=== PATIENT | male | born 1995 | race Caucasian/White ===

== ENCOUNTER 2017-01-26 14:10 | Observation (INO) | payer OTHER ==
[~2017-01-26] VITALS: Ht 185.4 cm; Wt 72.1 kg
--- NOTE | 2017-01-26 14:17 | NUR ---
21 YEAR OLD MALE STATES THAT HE WORKS [employer] AND THAT WHILE AT WORK HE BECAME VERY LIGHT HEADED AND DIZZY, STATES THAT HE FEELS WEAK, AND THAT HE HAS HAD WEIGHT LOSS OF ABOUT 40 LBS IN 2.5 MONTHS. HR 54 AT TRIAGE.
[2017-01-26 14:44] LABS: ABSOLUTE BASOPHIL COUNT 0 /CUMM (0.0-0.2); ABSOLUTE EOSINOPHIL COUNT 0.2 /CUMM (0.0-0.7); ABSOLUTE LYMPH COUNT 2.2 /CUMM (1.2-3.4); ABSOLUTE MONOCYTE COUNT 0.7 /CUMM (0.10-0.60); BASOPHIL % 0.5 % (0.0-2.0); EOSINOPHIL % 2.8 % (0-5); GRANULOCYTE % 61.6 % (42.2-75.2); HEMATOCRIT 38.6 % (42-52); MEAN CORPUSCULAR HGB 30.3 PG (27.0-31.0); MEAN CORPUSCULAR HGB CONC 34.1 G/DL (33.0-37.0); MEAN CORPUSCULAR VOLUME 88.8 FL (80.0-94.0); MEAN PLATELET VOLUME 8.1 FL (7.4-10.4); PLATELET COUNT 306 /CUMM (130-400); RBC DISTRIBUTION WIDTH 13.1 % (11.5-14.5); RED BLOOD CELL CT 4.35 /CUMM (4.70-6.10); WHITE BLOOD CELL COUNT 8.1 /CUMM (4.8-10.8)
--- NOTE | 2017-01-26 16:08 | NUR ---
PT TO ROOM 9, AWAITING PROVIDER EVAL
--- NOTE | 2017-01-26 16:09 | NUR ---
PT CHANGED INTO GOWN AND PLACED ON CARDIAC MONIOR
--- NOTE | 2017-01-26 16:20 | ED SYNCOPE COMPLAINT ---
See Addendum History of Present Illness General Chief Complaint: Syncope and Near-Syncope Stated Complaint: PT NEAR SYNCOPE Source: patient Exam Limitations: no limitations Vital Signs & Intake/Output Vital Signs & Intake/Output Vital Signs Date Time Temp Pulse Resp B/P B/P Pulse O2 O2 Flow FiO2 Mean Ox Delivery Rate 01/27 0814 96.2 51 20 120/58 98 Room Air 01/27 0622 97.9 39 16 127/67 96 Room Air 01/27 0341 98.1 42 16 125/64 97 Room Air 01/27 0001 98.1 50 16 129/69 97 Room Air 01/26 1414 98.5 54 16 135/80 97 Room Air ED Intake and Output 01/27 0000 01/26 1200 Intake Total Output Total Balance Patient 158 lb Weight Allergies Coded Allergies: NSAIDS (Non-Steroidal Anti-Inflamma (LEONOR MANSFIELD SAID DO NOT TAKE 01/26/17) Reconcile Medications No Known Home Medications Triage Note: 21 YEAR OLD MALE STATES THAT HE WORKS [employer] AND THAT WHILE AT WORK HE BECAME VERY LIGHT HEADED AND DIZZY, STATES THAT HE FEELS WEAK, AND THAT HE HAS HAD WEIGHT LOSS OF ABOUT 40 LBS IN 2.5 MONTHS. HR 54 AT TRIAGE. Triage Nurses Notes Reviewed? yes Timing: recent history Precipitating Factors: lightheadedness HPI: Patient is a 21-year-old male with an unremarkable past medical history of stents emergency room stating that the past 6 months she's been complaining of intermittent lightheadedness and dizziness sensation however today he was in his normal state of health while working outside in [place] he had acute onset of lightheaded sensation dizziness and diaphoresis AND PRESYNCOPE SYMPTOMS and Patient states that symptoms have improved prior to lunch patient ate lunch however symptoms then reoccurred.THEN patient DOES STATE that his coworkers told him that he did lose consciousness for less than 1 minute. Patient does state that he smokes tobacco and drinks alcohol on occasion denies any illicit drug use. Denies any fever chills headache cough shortness of breath chest pain nausea vomiting. (MARTINEZ SCHULER,CALDERON) Past History Travel History Traveled to [place] past 21 day No Medical History Any Pertinent Medical History? none Neurological: NONE EENT: NONE Cardiovascular: NONE Respiratory: NONE Gastrointestinal: NONE Hepatic: NONE Renal: NONE Musculoskeletal: NONE Psychiatric: NONE Endocrine: NONE Blood Disorders: NONE Cancer(s): NONE Surgical History Surgical History: non-contributory Psychosocial History What is your primary language Nepalese Tobacco Use: Current Daily Use Daily Tobacco Use Amount/Type: => 5 Cigarettes daily ETOH Use: denies use Illicit Drug Use: denies illicit drug use Family History Hx Contributory? No (CALDERON CARIAS) Review of Systems Review of Systems Constitutional: Reports: see HPI. EENTM: Reports: no symptoms. Respiratory: Reports: no symptoms. Cardiovascular: Reports: see HPI, syncope. GI: Reports: no symptoms. Genitourinary: Reports: no symptoms. Musculoskeletal: Reports: no symptoms. Skin: Reports: no symptoms. Neurological/Psychological: Reports: no symptoms. All Other Systems: Reviewed and Negative (CALDERON CARIAS) Physical Exam Physical Exam General Appearance: no apparent distress, alert, comfortable Cranial Nerves: normal hearing, normal speech, PERRL Comments: Well-developed well-nourished person in no acute distress HEENT: Normal EENT exam, extraocular motion intact, no nystagmus. Pupils equally round and reactive to light and accommodation. Nose is atraumatic. External auditory canal and Tympanic membranes clear. Pharynx normal. No swelling or edema. Neck: Supple, no lymphadenopathy, normal range of motion without pain or tenderness Back: Nontender, no CVA tenderness. Cardiovascular: Regular rate and rhythms no murmurs rubs or gallops, normal JVP Respiratory: Chest nontender. No respiratory distress.breath sounds clear to auscultation bilaterally Abdomen: Soft, nontender nondistended, no appreciable organomegaly. Normal bowel sounds. No ascites Extremity: No edema, no calf tenderness to palpation, normal and equal pulses. Neuro: Alert oriented x3, motor sensory normal, Skin: No appreciable rash on exposed skin, skin is warm and dry. Psych: Mood and affect is normal, memory and judgment is normal. Core Measures ACS in differential dx? Yes CVA/TIA Diagnosis: No Severe Sepsis Present: No Septic Shock Present: No (CALDERON CARIAS) Progress Differential Diagnosis: AMI, aortic dissection, aortic valve, drug induced syncope, hyperventilation, orthostatic syncope, other valvular disease, pacemaker malfunction, pericardial tamponade, pulmonary embolus, seizure, sick sinus syndrome, subarachnoid hem., TIA/CVA, vasodepressor syncope, ventricular tach/fib, HCM Plan of Care: Orders Procedure Date/time Status Regular Diet 01/27 B Active Add-on Test (ER Only) 01/27 1156 Active TROPONIN LEVEL 01/27 06 Complete LYME TITRE 01/27 06 Active LIPID PANEL 01/27 06 Complete CBC WITHOUT DIFFERENTIAL 01/27 06 Complete BASIC ELECTROLYTES PLUS BUN&CR 01/27 06 Complete EKG 01/27 06 Active ECHOCARDIOGRAM 01/27 0600 Active THYROID STIMULATING HORMONE 01/27 0525 Complete VITAMIN B12 01/27 0525 Complete Teach/Educate 01/27 0230 Active Pain Treatment and Response 01/27 023 Active Nutritional Intake, Monitor 01/27 023 Active Isolation 01/27 023 Active Patient Care Conference 01/27 0230 Active Activity/Ambulation 01/27 0230 Active EKG 01/27 0106 Active Lab Add-on Test 01/27 UNK Active Nursing Misc 01/27 UNK Active TROPONIN LEVEL 01/27 2236 Complete Pathway - chart 01/27 2232 Active Patient Data 01/27 2232 Active Code Status 01/27 2232 Active Misc Message 01/26 2153 Active ED Holding Orders 01/26 2153 Active Vital Signs 01/26 2153 Active Code Status 01/26 215 Complete Patient Data 01/[address] in observation 01/26 2009 Active Telemetry/Network Coordinator 01/26 192 Active MISTAKE 01/26 1634 Active TROPONIN LEVEL 01/26 1430 Complete URINE DRUG SCREEN FOR ER ONLY 01/26 1426 Complete COMPREHENSIVE METABOLIC PANEL 01/26 1418 Complete CBC WITHOUT DIFFERENTIAL 01/26 1418 Complete EKG 01/26 1418 Active Pathway - chart 01/26 UNK Active House Staff 01/26 UNK Active ACS Core Measures 01/26 UNK Active VTE Mechanical Prophylaxis 01/26 UNK Active Intake & Output 01/26 UNK Active EKG 01/26 UNK Active Current Medications Sig/Lucille Start time Last Medication Dose Stop Time Status Admin Enoxaparin Sodium 40 MG DAILY 01/27 1000 AC (Lovenox) Laboratory Tests 01/27/17 1126: Vitamin B12 Cancelled, TSH Cancelled, Lyme Disease Antibody Cancelled 01/27/17 0600: Lyme Disease Antibody Pending 01/27/17 0525: Anion Gap 6, Estimated GFR > 60, BUN/Creatinine Ratio 21.7, Troponin I < 0.01, Triglycerides 47, Cholesterol 101, LDL Cholesterol, Calc 50 L, HDL Cholesterol 42, Cholesterol/HDL Ratio 2, Vitamin B12 423, TSH 0.603, CBC w Diff NO MAN DIFF REQ, RBC 4.31 L, MCV 89.5, MCH 30.4, RDW 13.4, MPV 8.5, Gran % 59.8, Lymphocytes % 27.2, Monocytes % 8.6, Eosinophils % 3.5, Basophils % 0.9, Absolute Granulocytes 4.6, Absolute Lymphocytes 2.1, Absolute Monocytes 0.7 H, Absolute Eosinophils 0.3, Absolute Basophils 0.1, PUBS MCHC 34.0 01/27/17 0220: Troponin I < 0.01 01/26/17 1553: Urine Opiates Screen < 100.00, Methadone Screen < 40, Barbiturate Screen < 60, Ur Phencyclidine Scrn < 6.00, Amphetamines Screen < 100, U Benzodiazepines Scrn < 85, Urine Cocaine Screen < 50, Urine Cannabis Screen 15.20 01/26/17 1430: Anion Gap 9, Estimated GFR > 60, BUN/Creatinine Ratio 26.7 H, Glucose 96, Calcium 9.2, Total Bilirubin 1.4 H, AST 34, ALT 37, Alkaline Phosphatase 88, Troponin I < 0.01, Total Protein 6.1 L, Albumin 3.9, Globulin 2.2, Albumin/ Globulin Ratio 1.8, CBC w Diff NO MAN DIFF REQ, RBC 4.35 L, MCV 88.8, MCH 30.3, RDW 13.1, MPV 8.1, Gran % 61.6, Lymphocytes % 27.0, Monocytes % 8.1, Eosinophils % 2.8, Basophils % 0.5, Absolute Granulocytes 5.0, Absolute Lymphocytes 2.2, Absolute Monocytes 0.7 H, Absolute Eosinophils 0.2, Absolute Basophils 0, PUBS MCHC 34.1 01/26/17 1426: Troponin I Cancelled Patient currently is resting comfortably orthostatics were negative. Patient does have concerning EKG abnormalities and significant LVH. Due to history of present also bradycardia and EKG abnormalities and syncope I discussed patient with Dr. Hallman who advised patient to be admitted under telemetry observation for further evaluation treatment. Discussed this with patient who agrees (MARTINEZ SCHULER,CALDERON) Diagnostic Imaging: Viewed by Me: Radiology Read. Radiology Impression: no acute abnormality, no fracture Initial ED EKG: normal p-waves, normal QRS complex, 49 BPM, LVH Comments: PATIENT: MARINA FREY PRESENT AGE: 21 PATIENT ACCOUNT NO: [id number] : 93 LOCATION: [facility] ORDERING PHYSICIAN: CALDERON SCHULER SERVICE DATE: 01/26/17 EXAM TYPE: RAD - XRY-CHEST XRAY, PA AND LATERAL EXAMINATION: XR CHEST CLINICAL INFORMATION: Bradycardia. Smoker. Presyncope. COMPARISON: None TECHNIQUE: 2 views of the chest were obtained. FINDINGS: No significant abnormality is noted involving the heart, lungs, mediastinum, bony thorax or soft tissues. There is pectus excavatum. IMPRESSION: No acute abnormality the chest. DICTATED BY: NIKA FONG MD DATE/TIME DICTATED:01/26/171653 (CALDERON CARIAS) Departure Departure Disposition: STILL A PATIENT Condition: Stable Clinical Impression Primary Impression: Syncope Secondary Impressions: Bradycardia, EKG abnormalities Referrals: PATIENT HAS NO PRIMARY CARE DR (PCP/Family) Additional Instructions: As discussed please discontinue smoking. If symptoms worsen return to emergency room. Tomorrow please follow up and establish a armed security professional Dr. Hallman for further evaluation and treatment Departure Forms: Customer Survey General Discharge Information Prescriptions: Current Visit Scripts No Known Home Medications Observation Note Spoke With: EMA HALLMAN MD Physician Advisor Notified: MASON MANSFIELD,ELVIA Rahman Patient In: Non-ED OBS Care Area Rationale for Observation: My rational for observation is as follows [discussed patient with Dr. Hallman who agrees with telemetry admission observation for concerns of syncope and EKG abnormalities and bradycardia. Patient requires further evaluation of LVH noted on EKG and concerns of hypertrophic cardiomyopathy]. (CALDERON CARIAS) PA/FLORAL MANAGER Co-Sign Statement Statement: ED Attending supervision documentation- [] I saw and evaluated the patient. I have also reviewed all the pertinent lab results and diagnostic results. I agree with the findings and the plan of care as documented in the PA's/FLORAL MANAGER's documentation. [X] I have reviewed the ED Record and agree with the PA's/FLORAL MANAGER's documentation. [] Additions or exceptions (if any) to the PAs/FLORAL MANAGER's note and plan are summarized below: [] (LORE MANSFIELD,HUGO)
--- NOTE | 2017-01-26 16:35 | NUR ---
PT TO XRAY VIA STRETCHER
--- NOTE | 2017-01-26 16:42 | NUR ---
PT FROM XRAY
--- NOTE | 2017-01-26 16:59 | RADIOLOGY REPORT ---
EXAMINATION: XR CHEST CLINICAL INFORMATION: Bradycardia. Smoker. Presyncope. COMPARISON: None TECHNIQUE: 2 views of the chest were obtained. FINDINGS: No significant abnormality is noted involving the heart, lungs, mediastinum, bony thorax or soft tissues. There is pectus excavatum. IMPRESSION: No acute abnormality the chest.
--- NOTE | 2017-01-26 17:08 | NUR ---
PT MEDICATED WITH 650MG TYLENOL PER EMAR
--- NOTE | 2017-01-26 17:48 | NUR ---
HARINI HENRIQUEZ AT BEDSIDE FOR DISCUSSION ON PLAN OF CARE
--- NOTE | 2017-01-26 19:03 | NUR ---
PT STATING HE DOES NOT WANT NICOTINE PATCH AT THIS TIME, PT AWARE THAT ORDER IS IN IN CASE PT WANTS NICOTINE PATCH LATER TONIGHT.
--- NOTE | 2017-01-26 21:39 | History & Physical ---
KIRAN MANSFIELD,CHERILayla 01/26/17 213: General Information and HPI MD Statement: I have seen and personally examined MARINA FREY and documented this H&P. The patient is a 21 year old M who presented with a patient stated chief complaint of [syncope]. Source of Information: patient Exam Limitations: no limitations History of Present Illness: This is a 21 yo male with no known PMH other than a history of mood disorder which used to be treated with Risperdal but no longer takes medication, who comes in for CC of lightheadedness, dizziness and syncope. Note that pt was asleep when I saw him and was particularly irritated and reluctant to share a history. Brief history is as follows. Pt was dizzy this AM around 11 am. He states he wasn't under any physical exertion at that time. 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 The dizziness proceeded to worsen, pt states he was diaphoretic and then he says his memory becomes faulty. He states that his co-workers noticed him passing out for about a minute or so. He does not remember much after including how he got to his car. He denies any nausea, vomiting, loss of bladder or bowel control, chest pain, or palpitations. He denies any family history of SCD or significant cardiac history but also states that he does not talk to any of his family anymore. Pt does smoke up to 10 cigarettes a day, is a social drinker, once every 6 months or so, and denies any drug use. He does have history of Bipolar disorder on Risperdal but is currently not taking any medications. Allergies/Medications Allergies: Coded Allergies: NSAIDS (Non-Steroidal Anti-Inflamma (LEONOR MANSFIELD SAID DO NOT TAKE 01/26/17) Home Med list No Known Home Medications Compliance With Home Meds: GOOD Past History Travel History Traveled to [place] past 21 day No Medical History Neurological: NONE EENT: NONE Cardiovascular: NONE Respiratory: NONE Gastrointestinal: NONE Hepatic: NONE Renal: NONE Musculoskeletal: NONE Psychiatric: NONE Endocrine: NONE Blood Disorders: NONE Cancer(s): NONE Surgical History Surgical History: non-contributory Past Family/Social History Psychosocial History Primary Language: Pap[place] Smoking Status: Current Everyday Smoker ETOH Use: denies use Illicit Drug Use: denies illicit drug use Functional Ability ADLs Independent: dressing, eating, toileting, bathing. Ambulation: independent IADLs Independent: shopping. Review of Systems Review of Systems Constitutional: Reports: no symptoms, diaphoresis. Denies: chills, fever, malaise, weakness. EENTM: Denies: blurred vision, double vision, visual changes. Cardiovascular: Reports: syncope. Denies: chest pain, palpitations, peripheral edema. Respiratory: Reports: no symptoms. GI: Reports: no symptoms. Genitourinary: Reports: no symptoms. Musculoskeletal: Reports: no symptoms. Skin: Reports: no symptoms. Exam & Diagnostic Data Last 24 Hrs of Vital Signs/I&O Vital Signs Date Time Temp Pulse Resp B/P B/P Pulse O2 O2 Flow FiO2 Mean Ox Delivery Rate 01/26 1414 98.5 54 16 135/80 97 Room Air Intake & Output 01/27 0800 01/27 0000 01/26 1600 Intake Total Output Total Balance Patient 71.668 kg 71.668 kg Weight Physical Exam General Appearance Alert, Oriented X3, No Acute Distress Skin No Significant Lesion HEENT Atraumatic, PERRLA, EOMI Neck Supple, No JVD Cardiovascular BRADYCARDIA. 2/6 SYSTOLIC MURMUR Lungs Clear to Auscultation, Normal Air Movement Abdomen Soft, No Tenderness Extremities No Edema, Normal Pulses Last 24 Hrs of Labs/Jeremías: Laboratory Tests 01/27/17 0220: Troponin I < 0.01 01/26/17 1553: Urine Opiates Screen < 100.00, Methadone Screen < 40, Barbiturate Screen < 60, Ur Phencyclidine Scrn < 6.00, Amphetamines Screen < 100, U Benzodiazepines Scrn < 85, Urine Cocaine Screen < 50, Urine Cannabis Screen 15.20 01/26/17 1430: Anion Gap 9, Estimated GFR > 60, BUN/Creatinine Ratio 26.7 H, Glucose 96, Calcium 9.2, Total Bilirubin 1.4 H, AST 34, ALT 37, Alkaline Phosphatase 88, Troponin I < 0.01, Total Protein 6.1 L, Albumin 3.9, Globulin 2.2, Albumin/ Globulin Ratio 1.8, CBC w Diff NO MAN DIFF REQ, RBC 4.35 L, MCV 88.8, MCH 30.3, RDW 13.1, MPV 8.1, Gran % 61.6, Lymphocytes % 27.0, Monocytes % 8.1, Eosinophils % 2.8, Basophils % 0.5, Absolute Granulocytes 5.0, Absolute Lymphocytes 2.2, Absolute Monocytes 0.7 H, Absolute Eosinophils 0.2, Absolute Basophils 0, PUBS MCHC 34.1 01/26/17 1426: Troponin I Cancelled Assessment/Plan Assessment: This is a 20-year-old male with no previous cardiac history, but with bipolar disorder not on any medication, who comes in for chief complaint of syncope. It is difficult to discern if patient had any prodromal symptoms, however he denies any nausea, vomiting, palpitations but does endorse some dizziness. EKG shows: Sinus bradycardia with LVH. There is T wave inversion in V1. Vitals: 98.5, 54, 16, 135/80, 97 Utox negative CBC: WBC 8.1, HB 13.2, HCT 38.6 T.bili 1.4, normal AST/ALT CXR: Negative for any abnormalities PLAN 1. Syncope: Patient has no previous history of syncope. No change of medications. Denies any recent illness. Denies any seizure, loss of bladder or bowel movement. Does endorse some dizziness prior to loss of consciousness. With brief history provided, there is concern for exertional component of syncope. This in conjunction with his EKG showing LVH and some t-wave changes warrants further w/up for cardiac etiology of syncope. EKG shows bradycardia in 50s but in night patient had heart rate as low as 37. He was asymptomatic and asleep. * Monitor on telemetry * Cardiology consult * U tox negative 2. Elevated T bili: Shortness T bili of 1.4. AST and ALT within normal limits. Patient denies any current medication. However we will need to follow-up with him in a.m. Unsure of cause of elevation in bilirubin. * Monitor bilirubin a.m. 3. Tobacco abuse: Patient counseled extensively on quitting. Denied a nicotine patch. 4. Mood disorder: Patient has history of bipolar treated with Risperdal, currently on any medications. Patient does not have a provider in [place] currently. Consider psychiatric consult for follow-up. * Consider psych consult Full code Chemical DVT prophylaxis Regular diet As Ranked By This Provider Problem List: 1. Syncope 2. Bradycardia 3. EKG abnormalities Core Measures/Miscellaneous Acute Coronary Syndrome ACS Diagnosis: No Cerebrovascular Accident CVA/TIA Diagnosis: No Congestive Heart Failure CHF Diagnosis: No Venous Thromboembolism VTE Risk Factors: Smoking No [facility] VTE prophylaxis d/t: No contraindications No VTE Pharm Prophylaxis d/t: No contraindications VTE Diagnosis: No VTE Type: NONE VTE Confirmed by (Test): NONE Severe Sepsis Severe Sepsis Present: No Septic Shock Septic Shock Present: No Miscellaneous Documentation Attending Case Discussed With: Dr. Iyer Primary Care Physician: PATIENT HAS NO PRIMARY CARE DR Patient sees these Specialists None Level of Patient Care: Telemetry CORIN CALLES 01/26/175: Resident Review Statement Resident Statement: examined this patient, discussed with pharmacy grad intern, agreed with pharmacy grad intern Other Findings: This is a 21 year-old male with no significant past medical history other than mood disorder for which he was on risperidone,however no longer takes it,current active smoker, nondrinker, no illicit drug abuse came in with chief complain of lightheadedness and dizziness and one episode of syncope prior to presentation. Apparently,the patient was doing his usual chores, he felt dizzy around 11 AM on day of admission, he said that he was not aware of what happened for a couple of minutes, after which he was completely fine. He said that he did feel a little bit of diaphoretic however he says his memory is faulty and he does not remember much. He was not a very good historian and did not want to talk to us at all. It was difficult to get the entire history from him in detail however he said that his coworkers noticed him passing out for about a minute or so and he does not remember anything clearly. He was "pissed off"with everybody, including the doctors and did not want to talk to them. Vitals at the emergency department temperature of 98.5, pulse 54, respiration of 16, blood pressure of 135/80, he was 97% saturating on room air. PE : he was alert oriented to time place and person HEENT extraocular motion intact, no nystagmus. CVS regular rate and rhythm, bradycardic. Respiratory bilateral air entry present, no adventitious sounds, no respiratory distress. Per abdomen soft nontender. Neurological exam nonfocal. Relevant labs : white count of 9.1, H/H of 13.2/38.6, platelet of 306, sodium of 143, potassium of 3.6, BUN/creatinine 16/0.6, initial set of troponin was negative less than 0.01. Initial EKG showed first-degree heart block, bradycardic at 49, left ventricular hypertrophy, T-wave inversions in V1. Urine toxicology was negative. Chest X-ray did not show any acute cardiopulmonary abnormalities. Problem list along with assessment and plan. Problem #1 bradycardia with one episode of syncope. Patient was found to have bradycardia with an episode of syncope where he passed out for 2 minutes, he doesn't have active athletic life, does not run or exercise, he does not recollect if previously his heart rate was low. He does not have any family history of cardiac disorder, however actually he says that he is estranged from family and has no idea about them, he needs to have echocardiogram to rule out underlying cardiomyopathy as the patient is bradycardic, has ?left ventricular hypertrophy by voltage on the EKG. Continue to monitor on telemetry, cardiology Dr. Iyer following will see the patient in a.m. Continue to monitor vitals, continue monitor intake and output, check orthostatic vital signs. ct to trend EKG and troponin and rule out acute coronary syndrome. Continue cardiac maintenance and operations supervisor. Problem #2 history of mood disorder Patient was previously treated with Risperdal, however currently the patient is not on any medications. Problem #3 elevated total bilirubin. Mildly elevated. Continue to trend. Problem #4 current active smoker. He denied nicotine patch. Smoking cessation counseling. Full code Regular diet. DVT prophylaxis with Lovenox. mild/moderate/severe PP
--- NOTE | 2017-01-26 23:55 | NUR ---
PT MOVED TO ROOM 21, PLACED IN HOSPITAL BED, REMAINS SINUS KIERA ON MONITOR. SIDE RAILS IN UPRIGHT POSITION, OFFERING NO COMPLAINTS AT THIS TIME. RR NOTED. CALL CRABTREE WITHIN REACH.
--- NOTE | 2017-01-27 01:36 | NUR ---
PT SINUS KIERA DOWN TO 35, EKG DONE, HOUSE STAFF AT BEDSIDE. PT ASYMPTOMATIC. BP 121/67. PT OFFERING NO COMPLAINTS. ASLEEP W/RR NOTED. SIDE RAILS UPRIGHT, CALL [facility]TREE WITHIN REACH.
--- NOTE | 2017-01-27 02:36 | NUR ---
PT IPOC IS UP TO DATE AT THIS TIME
--- NOTE | 2017-01-27 05:03 | NUR ---
PT REMAINS ASLEEP AT THIS TIME W/RR NOTED. PT REMAINS SINUS BRADYCARDIC ON ADOPTION COUNSELOR, HOUSE STAFF AWARE. BP STABLE, SIDE RAILS UPRIGHT, CALL CRABTREE WITHIN REACH.
--- NOTE | 2017-01-27 05:28 | NUR ---
BLOOD OBTAINED AND SENT TO LAB -SST,[facility]
[2017-01-27 05:50] LABS: ABSOLUTE BASOPHIL COUNT 0.1 /CUMM (0.0-0.2); ABSOLUTE EOSINOPHIL COUNT 0.3 /CUMM (0.0-0.7); ABSOLUTE GRANULOCYTE CT 4.6 /CUMM (1.4-6.5); ABSOLUTE LYMPH COUNT 2.1 /CUMM (1.2-3.4); ABSOLUTE MONOCYTE COUNT 0.7 /CUMM (0.10-0.60); BASOPHIL % 0.9 % (0.0-2.0); EOSINOPHIL % 3.5 % (0-5); GRANULOCYTE % 59.8 % (42.2-75.2); HEMATOCRIT 38.6 % (42-52); MEAN CORPUSCULAR HGB 30.4 PG (27.0-31.0); MEAN CORPUSCULAR VOLUME 89.5 FL (80.0-94.0); MEAN PLATELET VOLUME 8.5 FL (7.4-10.4); PLATELET COUNT 263 /CUMM (130-400); RBC DISTRIBUTION WIDTH 13.4 % (11.5-14.5); RED BLOOD CELL CT 4.31 /CUMM (4.70-6.10); WHITE BLOOD CELL COUNT 7.8 /CUMM (4.8-10.8)
--- NOTE | 2017-01-27 08:27 | PN- Housestaff ---
Subjective Follow-up For: Syncope Subjective: Seen and examined while lying comfortable in bed. Patient does endorse some dizziness when ambulating. He however currently endorse any, LOC, shortness of breath, chest pain, palpitation, or any focal neurological deficit. He appears somewhat irritated and wanted to know the plan and was eager for possible discharge. Acute overnights telemetry notes episodes of sinus bradycardia while asleep. Review of Systems Constitutional: Reports: see HPI. Objective Last 24 Hrs of Vital Signs/I&O Vital Signs Date Time Temp Pulse Resp B/P B/P Pulse O2 O2 Flow FiO2 Mean Ox Delivery Rate 01/27 0814 96.2 51 20 120/58 98 Room Air 01/27 0622 97.9 39 16 127/67 96 Room Air 01/27 0341 98.1 42 16 125/64 97 Room Air 01/27 0001 98.1 50 16 129/69 97 Room Air 01/26 1414 98.5 54 16 135/80 97 Room Air Intake & Output 01/27 1600 01/27 0800 01/27 0000 Intake Total Output Total Balance Patient 71.668 kg Weight Physical Exam General Appearance: Alert, Oriented X3, Cooperative Neck: Supple, No JVD, No thryomegaly Lymphatic: Cervical nl Cardiovascular: Regular Rate, Normal S1, Normal S2 Lungs: Clear to Auscultation, Normal Air Movement Neurological: Normal Gait, Normal Speech, Strength at 5/5 X4 Ext, Cranial Nerves 3-12 NL Extremities: No Clubbing, No Cyanosis, No Edema Current Medications: Current Medications Sig/Lucille Start time Last Medication Dose Route Stop Time Status Admin Acetaminophen 650 MG Q4-6 PRN PRN 01/27 1530 AC PO Acetaminophen 0 .STK-MED ONE 01/26 1711 DC PO Acetaminophen 650 MG ONCE ONE 01/26 1700 DC 01/26 PO 01/26 1701 1708 Enoxaparin Sodium 40 MG DAILY 01/27 1000 AC SC Nicotine 0 .STK-MED ONE 01/26 1901 DC TOP Nicotine 21 MG ONCE ONE 01/26 1830 DC TOP 01/26 1831 Last 24 Hrs of Lab/Jeremías Results Last 24 Hrs of Labs/Mics: Laboratory Tests 01/27/17 1126: Vitamin B12 Cancelled, TSH Cancelled, Lyme Disease Antibody Cancelled 01/27/17 0600: Lyme Disease Antibody Pending 01/27/17 0525: Anion Gap 6, Estimated GFR > 60, BUN/Creatinine Ratio 21.7, Troponin I < 0.01, Triglycerides 47, Cholesterol 101, LDL Cholesterol, Calc 50 L, HDL Cholesterol 42, Cholesterol/HDL Ratio 2, Vitamin B12 423, TSH 0.603, CBC w Diff NO MAN DIFF REQ, RBC 4.31 L, MCV 89.5, MCH 30.4, RDW 13.4, MPV 8.5, Gran % 59.8, Lymphocytes % 27.2, Monocytes % 8.6, Eosinophils % 3.5, Basophils % 0.9, Absolute Granulocytes 4.6, Absolute Lymphocytes 2.1, Absolute Monocytes 0.7 H, Absolute Eosinophils 0.3, Absolute Basophils 0.1, PUBS MCHC 34.0 01/27/17 0220: Troponin I < 0.01 01/26/17 1553: Urine Opiates Screen < 100.00, Methadone Screen < 40, Barbiturate Screen < 60, Ur Phencyclidine Scrn < 6.00, Amphetamines Screen < 100, U Benzodiazepines Scrn < 85, Urine Cocaine Screen < 50, Urine Cannabis Screen 15.20 Assessment/Plan Assessment: This is a 21 year-old male with no significant past medical history other than mood disorder for which he was on risperidone,however no longer takes it,current active smoker, nondrinker, no illicit drug abuse presents with chief complain of lightheadedness and dizziness and one episode of "possible" syncope prior to presentation. Pt is also noted to have episodes of bradycardia. Impression and Plan #Dizziness Patient denies loss of consciousness, stable with the patient had a presyncope or syncopal event. Denies any chest pain or palpitation or exertional dependent syncope which will be suggestive of cardiac etiology. Orthostatics obtained today were negative. We are waiting echo results as patient is noted to have a systolic murmur and with EKG suggestive of some possible left ventricular hypertrophy will need to assess for any valvular pathology. #Bradycardia Episodes of heart rate going to meet 30s however patient is asymptomatic with other vitals stable. Need to assess whether there is intrinsic versus extrinsic cause of patient's bradycardia. He is not on any bradycardia inducing medication. Lyme titer and TSH labs have been ordered and will wait to reassess. Problem List: 1. Bradycardia 2. Syncope Pain Ratin Pain Location: [facility] Pain Goal: Remain pain free Pain Plan: PT WANTS APAP ONLY Tomorrow's Labs & Rationales: BEP
--- NOTE | 2017-01-27 09:53 | NUR ---
HOUSE STAFF AT BEDSIDE FOR EVALUAITON
--- NOTE | 2017-01-27 11:33 | PN- Cardiology ---
Subjective Subjective: The patient remains in the emergency room for now. At the moment, he is feeling much better than yesterday but continues not to feel his baseline. I had a long discussion with the patient about his symptoms yesterday. At the moment, the patient denies any clear-cut syncopal episode but did feel lightheaded and "out of it" for an extended period of several hours during the day yesterday. During that time, he also noted frequent episodes of positional lightheadedness and presyncope. No other symptoms were noted at that time. He denies any other recent illness, etc. Objective Vital Signs and I&Os Vital Signs Date Time Temp Pulse Resp B/P B/P Pulse O2 O2 Flow FiO2 Mean Ox Delivery Rate 01/27 0814 96.2 51 20 120/58 98 Room Air 01/27 0622 97.9 39 16 127/67 96 Room Air 01/27 0341 98.1 42 16 125/64 97 Room Air 01/27 0001 98.1 50 16 129/69 97 Room Air 01/26 1414 98.5 54 16 135/80 97 Room Air Intake & Output 01/27 1600 01/27 0800 01/27 0000 01/26 1600 01/26 0800 01/26 0000 Intake Total Output Total Balance Patient 158 lb 158 lb Weight Current Medications: Current Medications Sig/Lucille Start time Last Medication Dose Route Stop Time Status Admin Acetaminophen 0 .STK-MED ONE 01/26 1711 DC PO Acetaminophen 650 MG ONCE ONE 01/26 1700 DC 01/26 PO 01/26 1701 1708 Enoxaparin Sodium 40 MG DAILY 01/27 1000 AC SC Nicotine 0 .STK-MED ONE 01/26 1901 DC TOP Nicotine 21 MG ONCE ONE 01/26 1830 DC TOP 01/26 1831 Results Last 48 Hrs of Labs/Mics: Laboratory Tests 01/27/17 0525: Anion Gap 6, Estimated GFR > 60, BUN/Creatinine Ratio 21.7, Troponin I < 0.01, Triglycerides 47, Cholesterol 101, LDL Cholesterol, Calc 50 L, HDL Cholesterol 42, Cholesterol/HDL Ratio 2, CBC w Diff NO MAN DIFF REQ, RBC 4.31 L, MCV 89.5, MCH 30.4, RDW 13.4, MPV 8.5, Gran % 59.8, Lymphocytes % 27.2, Monocytes % 8.6, Eosinophils % 3.5, Basophils % 0.9, Absolute Granulocytes 4.6, Absolute Lymphocytes 2.1, Absolute Monocytes 0.7 H, Absolute Eosinophils 0.3, Absolute Basophils 0.1, PUBS MCHC 34.0 01/27/17 0220: Troponin I < 0.01 01/26/17 1553: Urine Opiates Screen < 100.00, Methadone Screen < 40, Barbiturate Screen < 60, Ur Phencyclidine Scrn < 6.00, Amphetamines Screen < 100, U Benzodiazepines Scrn < 85, Urine Cocaine Screen < 50, Urine Cannabis Screen 15.20 01/26/17 1430: Anion Gap 9, Estimated GFR > 60, BUN/Creatinine Ratio 26.7 H, Glucose 96, Calcium 9.2, Total Bilirubin 1.4 H, AST 34, ALT 37, Alkaline Phosphatase 88, Troponin I < 0.01, Total Protein 6.1 L, Albumin 3.9, Globulin 2.2, Albumin/ Globulin Ratio 1.8, CBC w Diff NO MAN DIFF REQ, RBC 4.35 L, MCV 88.8, MCH 30.3, RDW 13.1, MPV 8.1, Gran % 61.6, Lymphocytes % 27.0, Monocytes % 8.1, Eosinophils % 2.8, Basophils % 0.5, Absolute Granulocytes 5.0, Absolute Lymphocytes 2.2, Absolute Monocytes 0.7 H, Absolute Eosinophils 0.2, Absolute Basophils 0, PUBS MCHC 34.1 01/26/17 1426: Troponin I Cancelled Assessment/Plan Assessment/Plan Assessment: 1. Protracted episode of lightheadedness with presyncope/possible syncope with sinus bradycardia 2. Mildly elevated total bilirubin 3. Mild anemia 4. History of tobacco use Recommendations: -Keep the patient on the desk monitor for now. -Please check orthostatic heart rate and blood pressure every shift 2 -Please check Lyme titer -Echocardiogram pending -Please make sure that the patient's TSH, B12, etc. also checked.
--- NOTE | 2017-01-27 15:57 | NUR ---
PT MEDICATED PER EMAR WITH TYLENOL FOR HEADACHE.. PT ALSO PROVIDED WITH DINNER TRAY
--- NOTE | 2017-01-27 16:43 | ECHOCARDIOGRAM REPORT ---
MARINA FREY Age: 21 : 1995 Gender: M Exam Date: 01/27/2017 11:12 Exam Location: ER Ht (in): 73 Wt (lb): 158 BSA: 1.91 BP: 120 / 58 Ordering Physician: CORIN CALLES MD Referring Physician: CORIN CALLES MD Technologist: Frank Higgins [facility] Room Number: 21 Indications: STRUCTURAL HEART DISEASE Rhythm: Sinus Technical Quality: Good FINDINGS Left Ventricle Normal size left ventricle. No obvious regional wall motion abnormalities. Normal left ventricular ejection fraction estimated at 55-60%. Right Ventricle Normal right ventricular size and function. Right Atrium Normal right atrial size. Left Atrium Normal left atrial size. Mitral Valve Structurally normal mitral valve. Trace mitral regurgitation. Aortic Valve Structurally normal trileaflet aortic valve. No aortic stenosis. No aortic stenosis. Tricuspid Valve Structurally normal tricuspid valve. Trace to mild tricuspid regurgitation. Pulmonic Valve Trace pulmonic regurgitation. Pericardium Minimal pericardial effusion (normal variant). Great Vessels Normal size aortic root and proximal ascending aorta. CONCLUSIONS 1. This is a normal echocardiographic study. 2. The aortic valve is tricuspid and normal. 3. The mitral valve is normal with minimal mitral insufficiency noted. 4. A physiologic pericardial effusion is present. 5. The left ventricular chamber size and systolic function appear normal. A false tendon is present at the apex. 6. Minimal to mild tricuspid insufficiency is present with minimal pulmonic insufficiency. The RV systolic pressure could not be accurately assessed. Hao Dunne M.D. (Electronically Signed) Final Date: 27 Jan 2017 16:42 MEASUREMENTS (Male / Female) Normal Values 2D ECHO LV Diastolic Diameter PLAX 5.0 cm 4.2 - 5.9 / 3.9 - 5.3 cm LV Systolic Diameter PLAX 3.3 cm 2.1 - 4.0 cm LV Fractional Shortening PLAX 34.0 % 25 - 46 % LV Ejection Fraction 2D Teich 62.7 % IVS Diastolic Thickness 0.8 cm LVPW Diastolic Thickness 0.8 cm LV Relative Wall Thickness 0.3 RV Internal Dim ED PLAX 1.9 cm 1.9 - 3.8 cm LVOT Diameter 2.2 cm Aortic Root Diameter 2.6 cm LA Systolic Diameter LX 3.3 cm 3.0 - 4.0 / 2.7 - 3.8 cm LA Volume 44.0 cm 18 - 58 / 22 - 52 cm Ascending Aorta Diameter 2.8 cm DOPPLER AV Peak Velocity 152.0 cm/s AV Peak Gradient 9.2 mmHg AV Mean Velocity 106.0 cm/s AV Mean Gradient 5.0 mmHg AV Velocity Time Integral 37.1 cm LVOT Peak Velocity 121.0 cm/s LVOT Peak Gradient 5.9 mmHg LVOT Mean Velocity 77.8 cm/s LVOT Mean Gradient 3.0 mmHg LVOT Velocity Time Integral 30.0 cm LVOT Stroke Volume 114.0 cm AV Area Cont Eq vti 3.1 cm AV Area Cont Eq pk 3.0 cm MV Peak Velocity 108.0 cm/s MV Peak Gradient 4.7 mmHg MV Mean Velocity 39.6 cm/s MV Mean Gradient 1.0 mmHg Mitral E Point Velocity 80.9 cm/s Mitral A Point Velocity 45.4 cm/s Mitral E to A Ratio 1.8 MV PHT Velocity 111.0 cm/s MV Deceleration Amite 253.0 cm/s MV Pressure Half Time 131.6 ms MV Area PHT 1.7 cm MV Deceleration Time 387.0 ms TR Peak Velocity 217.0 cm/s TR Peak Gradient 18.8 mmHg Right Atrial Pressure 10.0 mmHg Pulmonary Artery Systolic Pressu 28.8 mmHg Right Ventricular Systolic Press 28.8 mmHg PV Peak Velocity 109.0 cm/s PV Peak Gradient 4.8 mmHg PV Mean Velocity 82.2 cm/s PV Mean Gradient 3.0 mmHg PV Velocity Time Integral 35.5 cm LV E' Lateral Velocity 23.1 cm/s Mitral E to LV E' Lateral Ratio 3.5 LV E' Septal Velocity 12.7 cm/s Mitral E to LV E' Septal Ratio 6.4
--- NOTE | 2017-01-27 17:20 | NUR ---
PT UPSET, WANTS TO LEAVE, SAYED PAGED [phone].
--- NOTE | 2017-01-27 18:55 | NUR ---
PT AMBULATING IN HALLS, GAIT STEADY, PT WANTS TO LEAVE, DR. RENTERIA PAGED [phone].
--- NOTE | 2017-01-27 19:13 | NUR ---
THIS RN NOW ASSUMING CARE OF PT.
--- NOTE | 2017-01-27 19:26 | NUR ---
MD CLARKE TEXT PAGED REGARDING PT'S DISPOSITION.
--- NOTE | 2017-01-27 19:40 | NUR ---
PAGER [phone] BEEPED REGARDING PT'S DISPOSITION. AWAITING RETURN CALL.
--- NOTE | 2017-01-27 19:47 | NUR ---
NO RETURN CALL FROM VINCE, PAGER [phone]. MOD PAGED. AWAITING RETURN CALL.
--- NOTE | 2017-01-27 20:03 | NUR ---
MOD HAS RETURNED CALL AND STATES THAT NIKKO WILL BE DOWN SHORTLY TO SPEAK WITH PT.
--- NOTE | 2017-01-27 20:28 | NUR ---
REPORT GIVEN TO GALDINO MEJIA.
--- NOTE | 2017-01-28 06:49 | PN- Housestaff ---
Subjective Follow-up For: DIZZINESS Subjective: Seen and examined at bedside. He reports that his dizziness has never currently improved and does not currently endorse any complaints including vertigo, tendinitis, dizziness while standing up, SPEP, palpitation, shortness of breath, fever, chills, abdominal pain, nausea, vomiting. Single events noted bradycardia especially when patient was sleeping, all of patient vital signs remained stable and patient was never symptomatic. Review of Systems Constitutional: Reports: no symptoms. Objective Last 24 Hrs of Vital Signs/I&O Vital Signs Date Time Temp Pulse Resp B/P B/P Pulse O2 O2 Flow FiO2 Mean Ox Delivery Rate 01/28 0817 96.8 62 15 122/60 99 Room Air 01/28 0800 98 Room Air Room Air 01/27 2112 Room Air 01/27 1802 60 128/77 01/27 180 97.0 68 22 118/57 100 Room Air Intake & Output 01/28 1600 01/28 0800 01/28 0000 Intake Total 400 1250 Output Total 650 600 Balance -250 650 Intake, Oral 400 1250 Output, Urine 650 600 Patient 72.121 kg Weight Weight Reported by Patient Measurement Method Physical Exam General Appearance: Alert, Oriented X3, Cooperative Other Physical Findings: Neck: Supple, No JVD, No thryomegaly Lymphatic: Cervical nl Cardiovascular: Regular Rate, Normal S1, Normal S2 Lungs: Clear to Auscultation, Normal Air Movement Neurological: Normal Gait, Normal Speech, Strength at 5/5 X4 Ext, Cranial Nerves 3-12 NL Extremities: No Clubbing, No Cyanosis, No Edema Current Medications: Current Medications Sig/Lucille Start time Last Medication Dose Route Stop Time Status Admin Acetaminophen 0 .STK-MED ONE 01/27 1553 DC PO Acetaminophen 650 MG Q4-6 PRN PRN 01/27 1530 DCD 01/27 PO 1553 Enoxaparin Sodium 40 MG DAILY 01/27 1000 DCD SC Assessment/Plan Assessment: This is a 21 year-old male with no significant past medical history other than mood disorder for which he was on risperidone,however no longer takes it,current active smoker, nondrinker, no illicit drug abuse presents with chief complain of lightheadedness and dizziness and one episode of "possible" syncope prior to presentation. Pt is also noted to have episodes of bradycardia. Impression and Plan #Dizziness Patient denies loss of consciousness, stable with the patient had a presyncope or syncopal event. Denies any chest pain or palpitation or exertional dependent syncope which will be suggestive of cardiac etiology. Orthostatics obtained today were negative. Echocardiogram was unremarkable for any valvular or ventricular abnormalities. #Bradycardia Episodes of heart rate going to meet 30s however patient is asymptomatic with other vitals stable. Need to assess whether there is intrinsic versus extrinsic cause of patient's bradycardia. He is not on any bradycardia inducing medication. Lyme titer and TSH labs have been ordered and will wait to reassess. Patient seems to have bradycardia when his deeper sleep however when woken up his heart rate normalizes. She is stable for discharge today and was instructed to follow-up with Dr. Dunne by calling his office February 02 to schedule appointments possible placement of loop recorder. Problem List: 1. Syncope 2. Bradycardia Pain Ratin Pain Location: none Pain Goal: Remain pain free Pain Plan: none Tomorrow's Labs & Rationales: none
--- NOTE | 2017-01-28 07:42 | Patient Discharge Instructions ---
Discharge Instructions General Discharge Information You were seen/treated for: Dizziness You had these procedures: Echocardiogram Special Instructions: Please seek medical attention if your develop new episodes of dizziness Please follow up with Dr Dunne (Stock Broker Supervisor) by calling his office on 02/02 to schedule an appointment Please follow up with your primary care referral with Jaziel coyle within 1 week and follow up with lymes titre results. Acute Coronary Syndrome Inclusion Criteria At DC or during hospital stay patient has or had the following: ACS DIAGNOSIS No Discharge Core Measures Meds if any: Prescribed or Continued at Discharge Meds if any: NOT Prescribed or Continued at Discharge Congestive Heart Failure Inclusion Criteria At DC or during hospital stay patient has or had the following: CHF DIAGNOSIS No Discharge Core Measures Meds if any: Prescribed or Continued at Discharge Meds if any: NOT Prescribed or Continued at Discharge Cerebrovascular accident Inclusion Criteria At DC or during hospital stay patient has or had the following: CVA/TIA Diagnosis No Discharge Core Measures Meds if any: Prescribed or Continued at Discharge Meds if any: NOT Prescribed or Continued at Discharge Venous thromboembolism Inclusion Criteria VTE Diagnosis No VTE Type NONE VTE Confirmed by (Test) NONE Discharge Core Measures - Per Current guidelines, there needs to be overlap - treatment for the first 5 days of Warfarin therapy. - If discharged on Warfarin prior to 5 days of - overlap therapy, the patient will need to be - assessed for post discharge needs including - *Post discharge parental anticoagulation - *Warfarin and/or parental anticoagulation education - *Follow up date to check INR post discharge At least 5 days overlap therapy as Inpatient No Meds if any: Prescribed or Continued at Discharge Note: Overlap Therapy is Warfarin and Anticoagulant Meds if any: NOT Prescribed or Continued at Discharge
[2017-01-28 08:17] VITALS: BP 122/60
== END 2017-01-28 09:24 ==
LOC: ERH 14:10 → ERHI 20:09 → ENRESERV 22:19 → CANRESERV 22:19 → ERHI 01-27 08:14
PROVIDERS: Emergency Medicine; Internal Medicine; ADMIT Internal Medicine Cardiovascular Disease
DX: R00.1 Bradycardia, unspecified (principal); F17.200 Nicotine dependence, unspecified, uncomplicated
CPT/HCPCS: 86618; 80307; 82436; 93005; 93010; 93306; G0378; J1650